=== PATIENT | male | born 1990 | race Caucasian/White ===

== ENCOUNTER 2018-08-05 23:23 | Emergency (ER) | payer SELFPAY ==
[2018-08-06] MEDS ORDERED: KETOROLAC TROMETHAMINE INJ/PF 30 MG/1 ML SDV IV ONE (02:44)
[2018-08-06] MEDS ORDERED: PIPERACILLIN/TAZOBACTAM 3.375 GM VIAL IV ONE ×2 (02:44→12:37)
--- NOTE | 2018-08-06 02:51 | ER Document Report ---
ED General - General Chief Complaint: Abscess Stated Complaint: BUMP ON EYE Time Seen by Provider: 08/06/18 02:12 Notes: Patient is a 27-year-old male presenting to the emergency department complaining of a bump on his right eye. Patient stated 6 days ago he noticed redness to the medial aspect of his upper lid, in the last 2 days states it has come to a head. Patient denies trying to express any drainage from that lesion. Patient admits to IV drug use, cocaine use, pilonidal cysts, but denies any MRSA infections. Patient denies any fever, change in vision, eye drainage. Patient denies any daily medication, denies allergies. Patient states he does smoke, does not use illicit drugs, does drink alcohol. TRAVEL OUTSIDE OF THE [place] IN LAST 30 DAYS: No - Related Data Allergies/Adverse Reactions: No Known Allergies Allergy (Unverified 08/06/18 03:54) Past Medical History - General Information source: Patient - Social History Smoking Status: Current Every Day Smoker Frequency of alcohol use: Occasional Drug Abuse: Cocaine, Heroin Lives with: Family Family History: Reviewed & Not Pertinent Review of Systems - Review of Systems Constitutional: See HPI EENT: See HPI Cardiovascular: No symptoms reported Respiratory: No symptoms reported Gastrointestinal: No symptoms reported Genitourinary: No symptoms reported Male Genitourinary: No symptoms reported Musculoskeletal: No symptoms reported Skin: No symptoms reported Hematologic/Lymphatic: See HPI Neurological/Psychological: No symptoms reported Physical Exam - Vital signs Vitals: Temp Pulse Resp BP Pulse Ox 97.9 F 82 16 122/72 99 08/05/18 23:36 08/05/18 23:36 08/05/18 23:36 08/05/18 23:36 08/05/18 23:36 - Notes Notes: GENERAL: Alert, interacts well. No acute distress. HEAD: Normocephalic. EYES: Pupils equal, round, and reactive to light. Extraocular movements intact. No proptosis. ENT: Oral mucosa moist, tongue midline. Nares patent, no nasal septal hematoma, TM's intact NECK: Full range of motion. Supple. Trachea midline. LUNGS: Clear to auscultation bilaterally, no wheezes, rales, or rhonchi. No respiratory distress. HEART: Regular rate and rhythm. No murmur ABDOMEN: Soft, non-tender. Non-distended. Bowel sounds present in all 4 quadrants. EXTREMITIES: Moves all 4 extremities spontaneously. No edema, normal radial and dorsalis pedis pulses bilaterally. No cyanosis. BACK: no cervical, thoracic, lumbar midline tenderness. No saddle anesthesia, normal distal neurovascular exam. NEUROLOGICAL: Alert and oriented x3. Normal speech. [cranial nerves II through XII grossly intact]. PSYCH: Normal affect, normal mood. SKIN: Warm, dry, dime sized fluctuant area noted medial right upper eyelid, with surrounding redness. Course - Re-evaluation Re-evalutation: Discussed patient presentation with Dr. Placido GEORGE who stated the patient will also need ophthalmology which we currently do not have call or contact centre operator. Dr. Cummins recommends transfer. Extensive conversation with patient about need for transfer to another facility to potential surgically debride the abscess. Originally the patient wanted to leave [facility] at that point. Talked to the patient about potential spread of infection and need for rapid treatment. Patient eventually agreed [facility] Discussed patient presentation with Dr. Jacqueline Lambert, gas station supervisor. She recommends starting the patient on IV Vanc and Unasyn and transferring [facility]. Discussed patient presentation with Dr. Martínez, [facility] emergency department, made aware of transfer. - Vital Signs Vital signs: Temp Pulse Resp BP Pulse Ox 97.9 F 82 16 122/72 99 08/05/18 23:36 08/05/18 23:36 08/05/18 23:36 08/05/18 23:36 08/05/18 23:36 - Laboratory Result Diagrams: 08/06/18 03:40 08/06/18 03:40 Laboratory results interpreted by me: 08/06/18 08/06/18 03:40 03:40 RDW 14.1 H Direct Bilirubin 0.6 H AST 68 H Alkaline Phosphatase 183 H Total Protein 9.7 H Discharge - Discharge Clinical Impression: Orbital abscess Qualifiers: Laterality: right Qualified Code(s): H05.011 - Cellulitis of right orbit Condition: Serious Disposition: [facility] Admitting Provider: Dr. Jacqueline Lambert
[2018-08-06 03:59] LABS: ABSOLUTE BASOPHILS # (AUTO) 0.1 10^3/uL (0.0-0.2); ABSOLUTE EOSINOPHILS # (AUTO) 0.4 10^3/uL (0.0-0.6); ABSOLUTE LYMPHOCYTES (AUTO) 2.5 10^3/uL (0.5-4.7); ABSOLUTE MONOCYTES (AUTO) 0.7 10^3/uL (0.1-1.4); ABSOLUTE NEUT (AUTO) 4.8 10^3/uL (1.7-8.2); BASOPHILS % (AUTO) 0.9 % (0-2); HEMATOCRIT 44.3 % (37.9-51.0); LYMPHOCYTES % (AUTO) 29.3 % (13-45); MEAN CORPUSCULAR HGB CONC 33.8 g/dL (32.0-36.0); MEAN CORPUSCULAR VOLUME 83 fl (80-97); MONOCYTES % (AUTO) 8.5 % (3-13); PLATELET COUNT 362 10^3/uL (150-450); RED BLOOD COUNT 5.35 10^6/uL (4.35-5.55); RED CELL DISTRIBUTION WIDTH 14.1 % (11.5-14.0); SEGMENTED NEUTROPHILS % (AUTO) 56.3 % (42-78); TOTAL CELLS COUNTED % (AUTO) 100 %; WHITE BLOOD COUNT 8.6 10^3/uL (4.0-10.5)
[2018-08-06 04:14] LABS: ALANINE AMINOTRANSFERASE 42 U/L (21-72); ALBUMIN 4.9 g/dL (3.5-5.0); ALKALINE PHOSPHATASE 183 U/L (38-126); ANION GAP 11 (5-19); ASPARTATE AMINO TRANSFERASE 68 U/L (17-59); BILIRUBIN,DIRECT 0.6 mg/dL (0.0-0.4); BILIRUBIN,TOTAL 1.3 mg/dL (0.2-1.3); BLOOD UREA NITROGEN 11 mg/dL (7-20); CARBON DIOXIDE 30 mmol/L (22-30); CHLORIDE 101 mmol/L (98-107); GLUCOSE 95 mg/dL (75-110); POTASSIUM 4.2 mmol/L (3.6-5.0); SODIUM 142.4 mmol/L (137-145); TOTAL PROTEIN 9.7 g/dL (6.3-8.2)
--- NOTE | 2018-08-06 05:06 | RADIOLOGY REPORT (SQ) ---
EXAM DESCRIPTION: CT MAXILLOFACIAL WITH IV CONTRAST COMPLETED DATE/TME: 08/06/2018 02:39 CLINICAL HISTORY: orbital abscess right COMPARISON: None available TECHNIQUE: Axial CT of the facial bone obtained following the uncomplicated intravenous administration of 75 mL Omnipaque 350. Coronal and sagittal reformatted images available. DLP: 568.04 mGy-cm FINDINGS: Orbits: There is disruption of the anterior aspect of the right medial orbital wall and anterior lamina papyracea. The remaining orbital senior are intact. Intraorbital contents: At the medial aspect of the right orbit there is a 2.0 x 1.0 cm rim-enhancing fluid collection with displacement of the medial rectus muscle and mild early proptosis. No definite orbital vascular abnormalities noted on this study. Nasal bones: Intact. Maxilla: The maxillary hard palate is intact. Maxillary antral senior are intact. Sinuses: There is dense opacification of the maxillary sinuses as well as the right ethmoid air cells and left anterior ethmoid air cells. There is dense opacification of the frontal sinuses. Zygomatic processes: Intact Pterygoid plates: Intact Mandible: Intact. No mandibular condylar dislocation. Skull base/cervical spine: Visualized portions of the skull base and cervical spine are intact. Visualized mastoid air cells are well aerated. Subcutaneous soft tissues: There is inflammatory change in the right periorbital subcutaneous soft tissues. Neck soft tissues: No definite abnormality involving the nasopharynx, oropharynx, or hypopharynx. Fossa of [place]er are clear. Parotid glands and submandibular glands are unremarkable. No cervical lymphadenopathy. IMPRESSION: 1. There is a 2.0 cm orbital subperiosteal abscess arising from the right anterior ethmoid air cells. 2. Likely cellulitis within the subcutaneous soft tissues of the right orbit. 3. Severe inflammatory paranasal sinus disease involving the frontal sinuses, ethmoid air cells, and bilateral maxillary sinuses. This exam was performed according to our departmental dose-optimization program, which includes automated exposure control, adjustment of the mA and/or kV according to patient size and/or use of iterative reconstruction technique.
[2018-08-06] MEDS ORDERED: NICOTINE 21 MG/24 HR PATCH.TD24 TD ONE (06:15)
[2018-08-06] MEDS ORDERED: VANCOMYCIN HCL INJ 1000 MG VIAL IV ONE (07:56)
[2018-08-06] MEDS ORDERED: AMPICILLIN SOD/SULBACTAM 3 GM VIAL IV ONE (07:57)
[2018-08-06] MEDS ORDERED: VANCOMYCIN HCL INJ 1000 MG VIAL ONE (10:09)
[2018-08-06 14:05] VITALS: BP 124/78
== END 2018-08-06 14:14 | disposition short-term general hospital (02) ==
LOC: ER 23:23
DX: H05.011 Cellulitis of right orbit (principal); F17.200 Nicotine dependence, unspecified, uncomplicated
CPT/HCPCS: 99285; 96375; 96365; 96366; 96367; 36415; 87040; 85025; 80053; 70487; J0295; J1885; J3370; J2543